=== PATIENT | female | born 1980 | race African-American/Black ===

== ENCOUNTER 2024-06-24 18:47 | Emergency (ER) | payer MEDICAID, OTHER ==
[~2024-06-24] VITALS: Ht 170.2 cm; Wt 85.0 kg
[~2024-06-24 18:47] MED LIST: APIX5TAB PO; ATOR40TA70 PO; CYM20 PO; FAMO20TA8 PO; GABA-290 MT; METH-773 PO
[2024-06-24 18:51] VITALS: O2SAT 100
[2024-06-24 20:31] LABS: BASOPHILS % 0.3 % (0.0-2.0); EOSINOPHILS % 4.3 % (0.0-5.0); HEMATOCRIT. 44.3 % (36.0-48.0); HEMOGLOBIN. 14.3 g/dL (12.0-16.0); LYMPHOCYTES % 32.5 % (20.0-50.0); MEAN CORPUSCULAR HGB CONC 32.2 g/dL (31.0-37.0); MEAN CORPUSCULAR VOLUME 96.1 fL (81.0-99.0); MEAN PLATELET VOLUME 8.1 fl (7.4-10.4); MONOCYTES % 9.5 % (2.0-8.0); NEUTROPHILS % 53.4 % (40.0-76.0); PLATELET 351 x1000/uL (130-400); RED BLOOD CELL COUNT 4.61 mill/uL (4.2-5.4); RED CELL DISTRIBUTION WIDTH 15.5 % (11.6-14.6); WHITE BLOOD COUNT 7.2 x1000/uL (4.5-11.0)
[2024-06-24 20:36] LABS: CHLORIDE 110 mEq/L (98-107); POTASSIUM 3.5 mEq/L (3.5-5.1); SODIUM 139 mEq/L (136-145)
[2024-06-24 20:37] LABS: CARBON DIOXIDE 22 mEq/L (21-32)
[2024-06-24 20:38] LABS: CALCIUM 8.7 mg/dL (8.7-10.4)
[2024-06-24 20:42] LABS: CREATININE 0.9 mg/dL (0.6-1.0); GLUCOSE 104 mg/dL (70-105); UREA NITROGEN BLOOD 7 mg/dL (9-23)
[2024-06-24] MEDS: HYDROCODONE/ACETAMINOPHEN 7.5/325MG TABLET PO ONE (20:42)
[2024-06-24 20:57] LABS: CLARITY URINE CLEAR (CLEAR); COLOR URINE YELLOW (YELLOW); GLUCOSE URINE NEGATIVE (NEGATIVE); KETONES URINE NEGATIVE (NEGATIVE); LEUKOCYTE ESTERASE URINE TRACE (NEGATIVE); NITRITE URINE NEGATIVE (NEGATIVE); OCCULT BLOOD URINE NEGATIVE (NEGATIVE); PH URINE 6.5 (4.5-8.0); PROTEIN URINE NEGATIVE (NEGATIVE); SPECIFIC GRAVITY URINE 1.012 (1.005-1.030); UROBILINOGEN URINE 0.2 E.U./dL (0.2-1.0)
[2024-06-24 21:10] LABS: INR 0.9; PROTHROMBIN TIME 10.5 sec (9.6-11.0)
[2024-06-24 21:37] LABS: BACTERIA URINE NONE SEEN; RBC URINE NONE SEEN /hpf (0-2); SQUAMOUS EPITHELIAL CELL URINE 1+ /lpf (RARE/1+); WBC URINE 0-2 /hpf (0-2)
[2024-06-24] MEDS ORDERED: CYCL10TA21 MT (22:19)
[2024-06-24] MEDS ORDERED: TOPUD MT (22:19)
[2024-06-24] MEDS: HYDROCODONE/ACETAMINOPHEN 5/325MG TABLET PO ONE (23:13)
[2024-06-24 23:15] VITALS: BP 146/82; PULSE 72; RESP 16; TEMP 36.89184; O2SAT 100
[2024-06-25] MEDS ORDERED: HYDR-4001 MT (04:57)
== END 2024-06-24 23:16 | disposition home or self-care (01) ==
LOC: ER 18:47
DX: R06.02 Shortness of breath (principal); R07.89 Other chest pain; R51.9 Headache, unspecified; G89.29 Other chronic pain; E78.00 Pure hypercholesterolemia, unspecified; Z86.73 Personal history of transient ischemic attack (TIA), and cerebral infarction without residual deficits; Z79.899 Other long term (current) drug therapy; Z88.6 Allergy status to analgesic agent; Z79.01 Long term (current) use of anticoagulants
CPT/HCPCS: 80048; 81003; 85025; 85610; 36415; 71045; 70450; 99284; Z7610 ×2

== ENCOUNTER 2024-06-24 23:24 | Emergency (ER) | payer MEDICAID ==
[~2024-06-24] VITALS: Ht 157.5 cm; Wt 73.4 kg
[~2024-06-24 23:24] MED LIST changes: +CYCL10TA21 MT; +TOPUD MT
[2024-06-24 23:26] VITALS: O2SAT 99
[2024-06-24 23:28] VITALS: TEMP 98; O2SAT 99
[2024-06-25 02:05] VITALS: BP 159/65; PULSE 75; RESP 19
[2024-06-25] MEDS: MORPHINE SULFATE 4 MG/ML INJ (FOR IV/IM USE) IV STA (02:05)
[2024-06-25] MEDS: ONDANSETRON HCL 4MG/2ML INJ IV STA (02:05)
[2024-06-25] MEDS: FAMOTIDINE 20MG/2ML VIAL IV ONE (02:26)
[2024-06-25 03:46] LABS: HCG SCREEN NEGATIVE
[2024-06-25] MEDS ORDERED: HYDR-4001 MT (04:57)
[2024-06-25] MEDS: CYCLOBENZAPRINE 10MG TABLET PO ONE (05:33)
== END 2024-06-25 06:20 | disposition home or self-care (01) ==
LOC: ER 23:24
DX: S70.02XA Contusion of left hip, initial encounter (principal); S09.90XA Unspecified injury of head, initial encounter; S16.1XXA Strain of muscle, fascia and tendon at neck level, initial encounter; Z88.6 Allergy status to analgesic agent; Z86.73 Personal history of transient ischemic attack (TIA), and cerebral infarction without residual deficits; Z79.899 Other long term (current) drug therapy; Z79.01 Long term (current) use of anticoagulants; V49.49XA Driver injured in collision with other motor vehicles in traffic accident, initial encounter; Y93.89 Activity, other specified; Y92.89 Other specified places as the place of occurrence of the external cause; Y99.8 Other external cause status
CPT/HCPCS: 81025; 99285; 84703; 72125; 71250; 74176; 96374; 96375; J3490; J2405; J2270; Z7610